=== PATIENT | female | born 1990 | race Caucasian/White ===

== ENCOUNTER 2017-10-02 14:26 | Emergency (ER) | payer OTHER ==
[~2017-10-02] VITALS: Ht 165.1 cm; Wt 60.0 kg
[~2017-10-02 14:26] MED LIST: TESSALON PER100 MG PO
[2017-10-02 16:40] VITALS: BP 129/74
== END 2017-10-02 16:40 | disposition home or self-care (01) | DRG 605 ==
LOC: ED 14:26
DX: S00.93XA Contusion of unspecified part of head, initial encounter (principal); I50.9 Heart failure, unspecified; M32.9 Systemic lupus erythematosus, unspecified; W22.03XA Walked into furniture, initial encounter; Y92.009 Unspecified place in unspecified non-institutional (private) residence as the place of occurrence of the external cause

== ENCOUNTER 2017-11-26 13:08 | Emergency (ER) | payer OTHER ==
[~2017-11-26] VITALS: Ht 165.1 cm; Wt 44.0 kg
[2017-11-26 15:08] LABS: URINE BLOOD DIPSTICK LARGE (NEGATIVE); URINE GLUCOSE - DIPSTICK NEGATIVE (NEGATIVE); URINE KETONE NEGATIVE (NEGATIVE); URINE NITRITE - DIPSTICK NEGATIVE (Negative); URINE PROTEIN - DIPSTICK 100 mg/dL (NEG-TRACE); URINE SPECIFIC GRAVITY >=1.030; URINE UROBILINOGEN - DIPSTICK 0.2 E.U./dL (0.2)
[2017-11-26 15:13] LABS: URINE BILIRUBIN - DIPSTICK NEGATIVE (NEGATIVE); URINE CLARITY CLOUDY; URINE COLOR YELLOW; URINE LEUK ESTERASE SMALL (NEGATIVE)
[2017-11-26 15:15] VITALS: BP 112/74
[2017-11-26] MEDS ORDERED: CIPROFLOXACN500 MG PO (15:18)
[2017-11-26] MEDS ORDERED: PYRIDIUM200 MG PO (15:18)
[2017-11-26 15:22] LABS: URINE RBC 50-100 RBC/hpf (0-5); URINE SQUAMOUS EPITHELIAL CELL FEW EPI/hpf (0-FEW); URINE WBC 20-50 WBC/hpf (0-5)
== END 2017-11-26 15:15 | disposition home or self-care (01) | DRG 690 ==
LOC: ED 13:08
PROVIDERS: Emergency Medicine
DX: N39.0 Urinary tract infection, site not specified (principal); R10.2 Pelvic and perineal pain; R30.0 Dysuria; R35.0 Frequency of micturition; Z95.0 Presence of cardiac pacemaker; R50.9 Fever, unspecified

== ENCOUNTER 2018-06-06 15:16 | Emergency (ER) | payer MEDICARE, OTHER ==
[~2018-06-06] VITALS: Ht 165.1 cm; Wt 45.0 kg
[~2018-06-06 15:16] MED LIST changes: +CIPROFLOXACN500 MG PO; +PYRIDIUM200 MG PO
[2018-06-06 16:50] LABS: HEMATOCRIT 44.4 % (37.0-47.0); IMMATURE GRANULOCYTES 0.3 % (0.0-5.0); MEAN CELL VOLUME 82.4 fL CALC (80.0-100.0); MEAN CORPUSCULAR HGB CONC 31.5 g/L CALC (32.0-36.0); NEUT# 6.92 thou/uL (2.00-7.15); RED BLOOD COUNT 5.39 mill/uL (4.20-5.60); RED CELL DISTRI WIDTH 14.4 % (11.5-15.5)
[2018-06-06 17:13] LABS: ALBUMIN 4.7 g/dL (3.2-5.0); ALKALINE PHOSPHATASE 106 u/l (38-126); ANION GAP 17 (6-22 (CALC)); BILIRUBIN, TOTAL 0.4 mg/dL (0.0-1.4); BUN 17 mg/dL (7-17); BUN/CREATININE RATIO 23 (12-20 (CALC)); CARBON DIOXIDE 21 mmol/l (22-30); CHLORIDE 108 mmol/l (95-108); CREATININE 0.7 mg/dL (0.5-1.0); GFR > 60 ML/MIN (>=60 (CALC)); GFR FOR AFR.AMER. > 60 ML/MIN (>=60 (CALC)); LIPASE 213 u/l (23-300); POTASSIUM 4.3 mmol/l (3.5-5.1); SGOT/AST 26 u/l (14-36); SGPT/ALT 29 u/l (9-52); SODIUM 141 mmol/l (137-146); TOTAL PROTEIN 7.9 g/dL (6.3-8.2)
[2018-06-06 17:28] LABS: BETA-HCG, QUANT(RESULT NUMBER) <2 mIU/mL
[2018-06-06 17:50] LABS: URINE BILIRUBIN - DIPSTICK NEGATIVE (NEGATIVE); URINE BLOOD DIPSTICK SMALL (NEGATIVE); URINE COLOR YELLOW; URINE GLUCOSE - DIPSTICK NEGATIVE (NEGATIVE); URINE KETONE NEGATIVE (NEGATIVE); URINE NITRITE - DIPSTICK NEGATIVE (Negative); URINE PROTEIN - DIPSTICK NEGATIVE (NEG-TRACE); URINE SPECIFIC GRAVITY 1.025; URINE UROBILINOGEN - DIPSTICK 0.2 E.U./dL (0.2)
[2018-06-06 17:51] LABS: URINE LEUK ESTERASE MODERATE (NEGATIVE)
[2018-06-06 17:52] LABS: URINE CLARITY CLOUDY
[2018-06-06 17:53] LABS: URINE BACTERIA FEW hpf; URINE EPITHELIAL CELLS FEW EPI/hpf (0-FEW)
[2018-06-06] MEDS ORDERED: CEPHALEXIN500 M1 PO (19:20)
[2018-06-06 20:03] VITALS: BP 129/76
== END 2018-06-06 20:03 | disposition home or self-care (01) ==
LOC: ED 15:16
PROVIDERS: Family Medicine
DX: R10.32 Left lower quadrant pain (principal); R10.31 Right lower quadrant pain; N39.0 Urinary tract infection, site not specified; M32.9 Systemic lupus erythematosus, unspecified; Z95.0 Presence of cardiac pacemaker
CPT/HCPCS: Q9967

== ENCOUNTER 2018-09-17 07:29 | Emergency (ER) | payer MEDICARE, MEDICAID ==
[~2018-09-17] VITALS: Ht 165.1 cm; Wt 61.0 kg
[~2018-09-17 07:29] MED LIST changes: +CEPHALEXIN500 M1 PO
[2018-09-17] MEDS ORDERED: BUSPIRONE5 MG PO (07:56)
[2018-09-17 08:11] LABS: URINE BLOOD DIPSTICK TRACE-INTACT (NEGATIVE); URINE COLOR YELLOW; URINE GLUCOSE - DIPSTICK NEGATIVE (NEGATIVE); URINE KETONE 15 mg/dL (NEGATIVE); URINE NITRITE - DIPSTICK NEGATIVE (Negative); URINE PH 5.5 (4.5-8.0); URINE PROTEIN - DIPSTICK NEGATIVE (NEG-TRACE); URINE SPECIFIC GRAVITY >=1.030; URINE UROBILINOGEN - DIPSTICK 0.2 E.U./dL (0.2)
[2018-09-17 08:25] LABS: URINE CLARITY SL CLOUDY; URINE LEUK ESTERASE MODERATE (NEGATIVE)
[2018-09-17 08:26] LABS: URINE BILIRUBIN - DIPSTICK NEGATIVE (NEGATIVE)
[2018-09-17 08:36] LABS: URINE SQUAMOUS EPITHELIAL CELL MANY EPI/hpf (0-FEW)
[2018-09-17] MEDS ORDERED: CIPROFLOXACN500 MG PO (08:44)
[2018-09-17 08:49] VITALS: BP 110/71
== END 2018-09-17 08:50 | disposition home or self-care (01) ==
LOC: ED 07:29
PROVIDERS: Emergency Medicine
DX: N39.0 Urinary tract infection, site not specified (principal); R10.31 Right lower quadrant pain; R30.0 Dysuria

== ENCOUNTER 2020-03-09 | Emergency (ER) | payer MEDICARE, MEDICAID ==
[~2020-03-09] MED LIST changes: +BUSPIRONE5 MG PO
[2020-03-09 23:52] LABS: HEMATOCRIT 31.6 % (37.0-47.0); IMMATURE GRANULOCYTES 0.4 % (0.0-5.0); MEAN CELL VOLUME 72.1 fL CALC (80.0-100.0); MEAN CORPUSCULAR HGB 20.5 pG CALC (26.0-32.0); MEAN CORPUSCULAR HGB CONC 28.5 g/dL CAL (32.0-36.0); NEUT# 13.03 thou/uL (2.00-7.15); RED BLOOD COUNT 4.38 mill/uL (4.20-5.60); RED CELL DISTRI WIDTH 15.8 % (11.5-15.5)
[2020-03-09] MEDS ORDERED: LEXAPRO5 MG PO (23:59)
[2020-03-10 00:04] LABS: ALBUMIN 4.3 g/dL (3.2-5.0); ALKALINE PHOSPHATASE 90 u/l (38-126); AMYLASE 96 u/l (30-110); ANION GAP 16 (6-22 (CALC)); BUN 22 mg/dL (7-17); BUN/CREATININE RATIO 37 (12-20 (CALC)); CARBON DIOXIDE 17 mmol/l (22-30); CHLORIDE 107 mmol/l (95-108); CREATININE 0.6 mg/dL (0.5-1.0); GFR > 60 ML/MIN (>=60 (CALC)); GFR FOR AFR.AMER. > 60 ML/MIN (>=60 (CALC)); LIPASE 145 u/l (23-300); POTASSIUM 3.8 mmol/l (3.5-5.1); SGOT/AST 33 u/l (14-36); SODIUM 136 mmol/l (137-146); TOTAL PROTEIN 7.2 g/dL (6.3-8.2)
[2020-03-10 00:11] LABS: BILIRUBIN, TOTAL 0.7 mg/dL (0.0-1.4)
[2020-03-10 00:15] LABS: MYOGLOBIN 16 ng/mL (0 - 62)
[2020-03-10 00:22] LABS: URINE BILIRUBIN - DIPSTICK NEGATIVE (NEGATIVE); URINE BLOOD DIPSTICK NEGATIVE (NEGATIVE); URINE COLOR YELLOW; URINE GLUCOSE - DIPSTICK NEGATIVE (NEGATIVE); URINE KETONE 40 mg/dL (NEGATIVE); URINE LEUK ESTERASE TRACE (NEGATIVE); URINE NITRITE - DIPSTICK NEGATIVE (Negative); URINE PROTEIN - DIPSTICK 30 mg/dL (NEG-TRACE); URINE SPECIFIC GRAVITY >=1.030; URINE UROBILINOGEN - DIPSTICK 0.2 E.U./dL (0.2)
[2020-03-10 00:24] LABS: URINE BACTERIA MODERATE hpf; URINE EPITHELIAL CELLS MODERATE EPI/hpf (0-FEW)
[2020-03-10] MEDS ORDERED: CEPHALEXIN500 M1 PO (02:18)
[2020-03-10] MEDS ORDERED: ONDANSETRON4 MG PO (02:18)
[2020-03-16] MEDS ORDERED: ELIQUIS STARTER5 MG PO (09:36)
== END 2020-03-10 02:25 | disposition home or self-care (01) ==
PROVIDERS: Emergency Medicine
DX: N39.0 Urinary tract infection, site not specified (principal); R16.1 Splenomegaly, not elsewhere classified; N83.202 Unspecified ovarian cyst, left side; N83.201 Unspecified ovarian cyst, right side; Z87.440 Personal history of urinary (tract) infections

== ENCOUNTER 2020-03-11 | Inpatient (IN) | payer MEDICARE, MEDICAID ==
--- NOTE | 2020-03-10 23:47 | NUR ---
PATIENT PLACED IN TREATMENT ROOM BY EMS
[2020-03-11] VITALS (18 sets, daily range): BP systolic 90–118; BP diastolic 52–71
[~2020-03-11] MED LIST changes: +LEXAPRO5 MG PO; +ONDANSETRON4 MG PO
[2020-03-11 00:30] LABS: HEMATOCRIT 30.5 % (37.0-47.0); HEMOGLOBIN 8.7 g/dl (12.0-16.0); IMMATURE GRANULOCYTES 0.5 % (0.0-5.0); MEAN CELL VOLUME 71.9 fL CALC (80.0-100.0); MEAN CORPUSCULAR HGB 20.5 pG CALC (26.0-32.0); MEAN CORPUSCULAR HGB CONC 28.5 g/dL CAL (32.0-36.0); NEUT# 8.23 thou/uL (2.00-7.15); RED BLOOD COUNT 4.24 mill/uL (4.20-5.60); RED CELL DISTRI WIDTH 16.1 % (11.5-15.5)
[2020-03-11 00:36] LABS: URINE BILIRUBIN - DIPSTICK NEGATIVE (NEGATIVE); URINE BLOOD DIPSTICK NEGATIVE (NEGATIVE); URINE CLARITY CLEAR; URINE COLOR YELLOW; URINE GLUCOSE - DIPSTICK NEGATIVE (NEGATIVE); URINE KETONE 40 mg/dL (NEGATIVE); URINE LEUK ESTERASE NEGATIVE (Negative); URINE NITRITE - DIPSTICK NEGATIVE (Negative); URINE PROTEIN - DIPSTICK NEGATIVE (NEG-TRACE); URINE SPECIFIC GRAVITY >=1.030; URINE UROBILINOGEN - DIPSTICK 0.2 E.U./dL (0.2)
[2020-03-11 00:50] LABS: ALBUMIN 4.6 g/dL (3.2-5.0); ALKALINE PHOSPHATASE 98 u/l (38-126); BILIRUBIN, TOTAL 0.6 mg/dL (0.0-1.4); BUN 14 mg/dL (7-17); BUN/CREATININE RATIO 25 (12-20 (CALC)); CHLORIDE 103 mmol/l (95-108); CREATININE 0.6 mg/dL (0.5-1.0); GFR > 60 ML/MIN (>=60 (CALC)); GFR FOR AFR.AMER. > 60 ML/MIN (>=60 (CALC)); POTASSIUM 3.2 mmol/l (3.5-5.1); SGOT/AST 35 u/l (14-36); SODIUM 136 mmol/l (137-146); TOTAL PROTEIN 7.9 g/dL (6.3-8.2)
[2020-03-11 00:51] LABS: ANION GAP 12 (6-22 (CALC)); CARBON DIOXIDE 24 mmol/l (22-30)
--- NOTE | 2020-03-11 01:18 | NUR ---
PATIENT RESTING QUIETLY PLAYING ON PHONE. AWAITING CT SCAN.
--- NOTE | 2020-03-11 01:36 | NUR ---
PATIENT IN RADIOLOGY, RECEIVED CALL FROM RADIOLOGY DEPARTMENT. PATIENT IV INFILTRATE DURING CTA SCAN.
--- NOTE | 2020-03-11 01:49 | NUR ---
sALINE ONLY INJECTED INTO IV SITE. IV PATENT AND FLUSHES WELL UNABLE TO USE FOR CT SCAN.
--- NOTE | 2020-03-11 02:38 | NUR ---
NEW IV PLACED, PATIENT TO RADIOLOGY FOR CTA.
--- NOTE | 2020-03-11 03:06 | NUR ---
PATIENT RETURNED FROM RADIOLOGY. RESTING QUIETLY. NO C/O PAIN OR DISCOMFORT, NO S/S OF DISTRESS NOTED. RESPIRATIONS EVEN AND UNLABORED.
[2020-03-11 03:52] LABS: ACT PARTIAL THROMBO TIME 28.2 SECONDS (20.0-32.5); INTERNATIONAL NORMALIZED RATIO 1.1 RATIO (0.7-1.3); PROTHROMBIN TIME 11.1 SECONDS (9.0-12.5)
--- NOTE | 2020-03-11 04:16 | NUR ---
PATIENT MOVED TO ROOM 6 FOR MONITORING WHILE WAITING FOR INPATIENT BED.
--- NOTE | 2020-03-11 04:33 | NUR ---
HAND OFF REPORT GIVEN TO PULP GRINDER.
--- NOTE | 2020-03-11 04:45 | NUR ---
RECEIVED FROM ER VIA STRETCHER. AMBULATES FROM STRETCHER TO BED, STANCE AND GAIT STABLE. PLACED ON SUPERVISOR PHOTOSTAT SHOWING PACED RHYTHM. RESP EVEN AND UNLABORED. RA O2 SAT 97% ADMISSION ASSESSMENT COMPLETED. ORIENTED TO SURROUNDINGS. EXPLAINED USE OF CALL BUTLER AND BED CONTROLS. DISCUSSED PLAN OF CARE. DENIES NEEDS AT THIS TIME.
--- NOTE | 2020-03-11 07:00 | NUR ---
REPORT RECEIEVD FROM NIGHT RN. PT RESTING IN BED. PT ALERT AND ORIENTED X4. PT COMPLAINING OF RIGHT FLANK PAIN. DR. ANDRADE NOTIFIED. PAIN MEDICATIONS TO BE ORDERED. WILL CONTINUE TO MONITOR.
--- NOTE | 2020-03-11 07:58 | NUR ---
COVID SWAB COMPLETED AND SENT TO LAB
--- NOTE | 2020-03-11 08:20 | NUR ---
PT HAS PACEMAKER. AT TIMES PT HR BELOW 50'S. PT DOES NOT KNOW WHAT HER PACEMAKER IS SET AT AND WHAT TYPE OF PACEMAKER SHE HAS. DR. ANDRADE NOTIFIED. PER DR. ANDRADE OBTAIN PATIENT MEDICAL RECORDS FROM PCP AND IF POSSIBLE INTERROGATE PACEMAKER.
[2020-03-11 08:26] LABS: C-REACTIVE PROTEIN 5.5 mg/dL (0-0.9)
--- NOTE | 2020-03-11 09:00 | NUR ---
DR. ANDRADE AT BEDSIDE TO ASSESS PT
--- NOTE | 2020-03-11 09:50 | NUR ---
CONSENT FOR GERMLINE GENETIC TESTING PRINTED OUT FOR PATIENT. PER LAB [facility], SINCE PATIENT IS INPATIENT, NO SIGNATURE REQUIRED TO RUN LAB. DR. ANDRADE NOTIFIED. NO NEW ORDERS.
--- NOTE | 2020-03-11 10:00 | NUR ---
PT RESTING IN BED. NO DISTRESS NOTED. DENIES PAIN AT THIS TIME. WILL CONTINUE TO MONITOR.
--- NOTE | 2020-03-11 11:25 | NUR ---
PAIN MEDICATION GIVEN ORDERED, C/O R FLANK PAIN
--- NOTE | 2020-03-11 12:00 | NUR ---
PT AMBULATED TO BEDSIDE COMMODE TO VOID. PT STEADY. STAND BY ASSIST. NO DISTRESS NOTED. WILL CONTINUE TO MONITOR.
--- NOTE | 2020-03-11 12:21 | NUR ---
PT BELIEVES SHE HAS A [employer] PACEMAKER. PT STATES SHE DOES NOT HAVE A PCP. SHE GOES TO [facility] FOR MEDICAL TREATMENT. CONSENT FOT RELEASE OF INFORMATION OBTAINED. CALLED [facility]. THEY ARE CLOSED TODAY. WILL PASS ON IN REPORT TO CALL SATURDAY. DR. ANDRADE NOTIFIED. NO NEW ORDERS.
--- NOTE | 2020-03-11 13:13 | NUR ---
DR. ANDRADE NOTIFIED OF PATIENT D-DIMER 2.48. NO NEW ORDERS AT THIS TIME
--- NOTE | 2020-03-11 14:00 | NUR ---
PACEMAKER IRRIGATED BY MUNDO HENRIQUEZ WITH [employer]
--- NOTE | 2020-03-11 14:05 | NUR ---
PT RESTING IN BED. NO DISTRESS NOTED. NO SOB NOTED. WILL CONTINUE TO MONITOR.
--- NOTE | 2020-03-11 16:27 | NUR ---
PT RESTING IN BED, PT VOIDING VIA BEDSIDE COMMODE. NO DISTRESS NOTED. DENIES PAIN AT THIS TIME. WILL CONTINUE TO MONITOR.
--- NOTE | 2020-03-11 18:05 | NUR ---
PT UP IN BED FOR DINNER. NO DISTRESS NOTED. AFEBRILE ALL SHIFT. PT VOIDING VIA BEDSIDE COMMODE. PAIN MEDICATIONS GIVEN. PT ON RA. NO SOB NOTED. REPORT TO BE GIVEN TO NIGHT NURSE
--- NOTE | 2020-03-11 19:23 | NUR ---
REPORT GIVEN BY DIEGO FLOWER. PATIENT IN BED WATCHING TV. RESP EVEN AND UNLABORED.PACED ON TELE. FLUIDS INFUSING. NO S/S OF DISTRESS NOTED. PLAN OF CARE DISCUSSED. PATIENT INFORMED TO CALL WITH ANY QUESTIONS OR CONCERNS. FALL PRECATUIONS IN PLACE.
--- NOTE | 2020-03-11 21:30 | NUR ---
ASSISTED PATIENT TO BSC.
--- NOTE | 2020-03-11 22:34 | NUR ---
PATIENT AWAKE WATCHING TV. IV FLUIDS CHANGED.NO S/S OF DISTRESS NOTED.
--- NOTE | 2020-03-11 23:25 | NUR ---
PAIN MEDICATIONS GIVEN PER ORDERED, C/O R FLANK PAIN
[2020-03-12] VITALS (14 sets, daily range): BP systolic 82–147; BP diastolic 52–78
--- NOTE | 2020-03-12 00:34 | NUR ---
PATIENT RESTING WITH EYES CLOSED. RESP EVEN AND UNLABORED. NO S/S OF DISTRESS NOTED.
--- NOTE | 2020-03-12 02:12 | NUR ---
patient resting with eyes closed. resp even and unlabored. no s/s of distress noted.
--- NOTE | 2020-03-12 04:21 | NUR ---
AM BLOODWORK DRAWN, AM MEDICATION GIVEN AND PAIN MEDICATION GIVEN PER MD ORDERS,
[2020-03-12 05:01] LABS: HEMATOCRIT 26.7 % (37.0-47.0); HEMOGLOBIN 7.4 g/dl (12.0-16.0); MEAN CELL VOLUME 73.4 fL CALC (80.0-100.0); MEAN CORPUSCULAR HGB 20.3 pG CALC (26.0-32.0); MEAN CORPUSCULAR HGB CONC 27.7 g/dL CAL (32.0-36.0); RED BLOOD COUNT 3.64 mill/uL (4.20-5.60); RED CELL DISTRI WIDTH 16.1 % (11.5-15.5)
[2020-03-12 05:09] LABS: ANION GAP 8 (6-22 (CALC)); BUN 9 mg/dL (7-17); BUN/CREATININE RATIO 17 (12-20 (CALC)); CARBON DIOXIDE 24 mmol/l (22-30); CHLORIDE 109 mmol/l (95-108); CREATININE 0.5 mg/dL (0.5-1.0); GFR > 60 ML/MIN (>=60 (CALC)); GFR FOR AFR.AMER. > 60 ML/MIN (>=60 (CALC)); POTASSIUM 3.6 mmol/l (3.5-5.1); SODIUM 137 mmol/l (137-146)
--- NOTE | 2020-03-12 06:39 | NUR ---
NEW BAG OF IV FLUIDS STARTED
--- NOTE | 2020-03-12 06:45 | NUR ---
RECIEVED REPORT FROM MUNDO COMER. ASSUMED PT CARE.
--- NOTE | 2020-03-12 07:30 | NUR ---
PT RESTING IN BED, RESPIRATIONS EVEN, UNLABORED, SA02@97% ON 1LPM VIA NC. PT DENIES SOB, SOME TENDERNESS WITH DEEPER BREATHING AT DIAPHARGM. ASSESSMENT COMPLETE, CALL LIGHT IN REACH, WILL MONITOR.
--- NOTE | 2020-03-12 08:15 | NUR ---
PT ASSISTED TO BSC, VOIDED. THEN ASSISTED BACK TO BED. CALL LIGHT IN REACH. WILL MONITOR.
--- NOTE | 2020-03-12 09:30 | NUR ---
DR. CARVAJAL AT BEDSIDE FOR ASSESSMENT AND TO DISCUSS PLAN OF CARE. NEW ORDERS RECIEVED.
--- NOTE | 2020-03-12 10:45 | NUR ---
PT ASSISTED TO BSC, VOIDED 300ML URINE. BACK TO BED, CALL LIGHT IN REACH. WILL MONITOR.
--- NOTE | 2020-03-12 12:00 | NUR ---
DIETARY ON UNIT, LUNCH TRAY SET UP.
--- NOTE | 2020-03-12 13:15 | NUR ---
assisted pt to bsc, voided, 350ml urine. call light in reach.
--- NOTE | 2020-03-12 13:28 | NUR ---
pt medicated for pain to r flank as ordered per pt request.
--- NOTE | 2020-03-12 15:45 | NUR ---
CALLED TO PT ROOM, PT SET UP FOR BATH, GIVEN DEODERANT PER PT REQUEST. PT THEN STATED SHE HEARD LOUD YELLING AND CUSSING. PT THEN STATED IT SOUNDED LIKE HER FIANCE "HENRIQUE GRACE". APOLOGY MADE FOR DISRUPTIONS. PT RESTING BACK IN BED, CALL IN REACH. WILL MONITOR.
--- NOTE | 2020-03-12 17:39 | NUR ---
DIETARY ON UNIT, DINNER TRAY SET UP.
--- NOTE | 2020-03-12 18:14 | NUR ---
PT REMAINS SITTING IN LANGUAGE PATHOLOGIST, EATING DINNER. NO DISTRESS NOTED. CALL LIGHT IN REACH. WILL MONITOR.
--- NOTE | 2020-03-12 18:16 | NUR ---
PT RESTING IN BED, WITH EYES CLOSED.RESPIRATIONS EVEN/UNLABORED. CALL LIGHT IN REACH. WILL MONITOR.
--- NOTE | 2020-03-12 19:20 | NUR ---
PATIENT AWAKENS EASILY WHEN SPOKEN TO. ORIENTED X4. ON 1 L/MIN NC, NO SOB NOTED OR NO COMPLAINTS OF SOB, SATS GREATER THAN 95%. TEMP 99.9. PACED ON TELE WITH OCC PVC'S. RAC AND LAC IV'S INTACT AND FLSUH PROPERLY, NS INFSUING AT 125 ML/HR. C/O OF PAIN RATE OF 2/10 O RIGHT RIB SIDE AND LEFT SHOULDER. USES BSC. POC FOR TONIGHT DISCUSSED. NURSING ASSESSMENT PERFORMED. CALL LIGHT WITHIN REACH.
--- NOTE | 2020-03-12 20:07 | NUR ---
PATIENT UP TO BSC WITHOUT DIFFICULTY. C/O PAIN ON RIGHT RIB SIDE AND LEFT SHOULDER, REQUESTS PAIN MEDICATION AND ICED WATER. SAFELY SITS UP BACK IN BED. 700 ML URINE OUT.
--- NOTE | 2020-03-12 20:17 | NUR ---
PAIN MED PROVIDED PER REQUEST, ICED WATER PROVIDED. PT SITS UP IN BED. NO OTHER NEEDS. CALL LIGHT WITHIN REACH.
--- NOTE | 2020-03-12 22:45 | NUR ---
PATIENT SITS ON SIDE OF BED AFTER USING BSC. WATCHES TV AND IS ON HER PHONE. NO COMPLAINTS. NEW IV BAG OF FLUIDS INFUSING. CALL LIGHT WITHIN REACH.
[2020-03-13] VITALS: BP 116/79
--- NOTE | 2020-03-13 01:00 | NUR ---
PATIET LAYS WITH HOB 30 DEGREES. RESTS WTH EYES CLOSED. CALL LIGHT WITHIN REACH.
[2020-03-13 02:00] VITALS: BP 113/76
--- NOTE | 2020-03-13 03:47 | NUR ---
PATIENT AWAKENS EASILY WHEN SPOKEN TO, LOVENOX INJECTION GIVEN ON LEFT SIDE ABDOMEN. NO ACUTE DISTRESS SHOWN, PAIN MEDICATION PROVIDED PER REQUEST. CALL LIGHT WITHIN REACH.
[2020-03-13 05:10] LABS: HEMATOCRIT 29.4 % (37.0-47.0); HEMOGLOBIN 8.1 g/dl (12.0-16.0); IMMATURE GRANULOCYTES 0.5 % (0.0-5.0); MEAN CELL VOLUME 73.9 fL CALC (80.0-100.0); MEAN CORPUSCULAR HGB 20.4 pG CALC (26.0-32.0); MEAN CORPUSCULAR HGB CONC 27.6 g/dL CAL (32.0-36.0); NEUT# 2.91 thou/uL (2.00-7.15); RED BLOOD COUNT 3.98 mill/uL (4.20-5.60); RED CELL DISTRI WIDTH 16.3 % (11.5-15.5)
[2020-03-13 05:35] LABS: ANION GAP 10 (6-22 (CALC)); BUN 7 mg/dL (7-17); BUN/CREATININE RATIO 17 (12-20 (CALC)); CARBON DIOXIDE 23 mmol/l (22-30); CHLORIDE 108 mmol/l (95-108); CREATININE 0.4 mg/dL (0.5-1.0); GFR > 60 ML/MIN (>=60 (CALC)); GFR FOR AFR.AMER. > 60 ML/MIN (>=60 (CALC)); POTASSIUM 3.4 mmol/l (3.5-5.1); SODIUM 137 mmol/l (137-146)
[2020-03-13 06:06] VITALS: BP 102/67
--- NOTE | 2020-03-13 06:45 | NUR ---
RECIEVED REPORT FROM MUNDO DOMINGUEZ. ASSUMED PT CARE.
--- NOTE | 2020-03-13 07:30 | NUR ---
PT ASSISTED TO BSC, THEN BACK TO BED.
[2020-03-13 08:00] VITALS: BP 107/70
--- NOTE | 2020-03-13 08:00 | NUR ---
PT RESTING IN BED, A&OX4, ABLE TO MAKE NEEDS KNOWN. RESPIRATIONS EVEN/UNLABORED, SAO2@96%RA, REMAINS PACED ON TELEMETRY, HR 56. CALL LIGHT IN REACH. WILL MONITOR.
--- NOTE | 2020-03-13 08:58 | NUR ---
DR. CARVAJAL AT BEDSIDE FOR ASSESSMENT AND TO DISCUSS PLAN OF CARE, NEW ORDERS RECIEVED.
--- NOTE | 2020-03-13 09:40 | NUR ---
PT MEDICATED FOR PAIN ORDERED, PER PT REQUEST.
[2020-03-13 10:00] VITALS: BP 81/50
--- NOTE | 2020-03-13 11:30 | NUR ---
DIETARY ON UNIT, LUNCH TRAY SET UP. PT DENIES DISTRESS AT THIS TIME.
[2020-03-13] MEDS ORDERED: ELIQUIS STARTER5 MG PO (11:45)
--- NOTE | 2020-03-13 12:20 | NUR ---
IV site discontinued, cath intact. No edema , no redness, voices no discomfort.
--- NOTE | 2020-03-13 13:00 | NUR ---
PT MEDICATIONS RETURNED TO PT FROM PHARMACY.
--- NOTE | 2020-03-13 13:15 | NUR ---
Discharge instructions given. Patient verbalizes understanding of same. Discharged in stable condition via Wheelchair to Home with family. All belongings sent with pt.
[2020-03-16] MEDS ORDERED: ELIQUIS STARTER5 MG PO (09:36)
== END 2020-03-13 13:15 | disposition home or self-care (01) | DRG 176 ==
PROVIDERS: Emergency Medicine; Internal Medicine; ADMIT Internal Medicine
DX: I26.99 Other pulmonary embolism without acute cor pulmonale (principal); N39.0 Urinary tract infection, site not specified; M32.13 Lung involvement in systemic lupus erythematosus; D50.9 Iron deficiency anemia, unspecified; I50.9 Heart failure, unspecified; R16.1 Splenomegaly, not elsewhere classified; R09.02 Hypoxemia; Z95.0 Presence of cardiac pacemaker; Z20.828 Contact with and (suspected) exposure to other viral communicable diseases; R10.11 Right upper quadrant pain; R11.2 Nausea with vomiting, unspecified; N83.202 Unspecified ovarian cyst, left side; N83.201 Unspecified ovarian cyst, right side; Z87.440 Personal history of urinary (tract) infections
CPT/HCPCS: J1650; J1756; Q9967

== ENCOUNTER 2020-10-09 16:35 | Emergency (ER) | payer MEDICARE, MEDICAID ==
[~2020-10-09] VITALS: Ht 165.1 cm; Wt 44.5 kg
[~2020-10-09 16:35] MED LIST changes: +ELIQUIS STARTER5 MG PO
[2020-10-09] MEDS ORDERED: GENTAK0.32 OD (18:03)
[2020-10-09 18:12] VITALS: BP 118/74
== END 2020-10-09 18:13 | disposition home or self-care (01) ==
LOC: ED 16:35
DX: H10.11 Acute atopic conjunctivitis, right eye (principal); Z95.0 Presence of cardiac pacemaker

== ENCOUNTER 2021-02-02 07:53 | Observation (INO) | payer MEDICARE, OTHER ==
[2021-02-02] VITALS (7 sets, daily range): BP systolic 92–112; BP diastolic 61–67
[~2021-02-02] VITALS: Ht 165.1 cm; Wt 44.5 kg
[~2021-02-02 07:53] MED LIST changes: +GENTAK0.32 OD
--- NOTE | 2021-02-02 07:53 | NUR ---
PT TO ROOM 13 VIA EMS. BED SIDE TRAIGE COMPLETED
--- NOTE | 2021-02-02 08:15 | NUR ---
POC REVIEWED. CALL BUTLER IN REACH.
[2021-02-02 08:55] LABS: HEMATOCRIT 25.7 % (37.0-47.0); IMMATURE GRANULOCYTES 0.5 % (0.0-5.0); MEAN CORPUSCULAR HGB 18.7 pG CALC (26.0-32.0); MEAN CORPUSCULAR HGB CONC 27.2 g/dL CAL (32.0-36.0); NEUT# 10.58 thou/uL (2.00-7.15); RED BLOOD COUNT 3.74 mill/uL (4.20-5.60); RED CELL DISTRI WIDTH 17.2 % (11.5-15.5)
[2021-02-02 08:56] LABS: HEMOGLOBIN 7.1 g/dl (12.0-16.0); MEAN CELL VOLUME 68.7 fL CALC (80.0-100.0)
[2021-02-02 09:04] LABS: ALBUMIN 4.1 g/dL (3.2-5.0); ALKALINE PHOSPHATASE 80 u/l (38-126); ANION GAP 12 (6-22 (CALC)); BILIRUBIN, TOTAL 0.8 mg/dL (0.0-1.4); BUN 16 mg/dL (7-17); BUN/CREATININE RATIO 31 (12-20 (CALC)); CARBON DIOXIDE 21 mmol/l (22-30); CHLORIDE 106 mmol/l (95-108); CREATININE 0.5 mg/dL (0.5-1.0); GFR > 60 ML/MIN (>=60 (CALC)); GFR FOR AFR.AMER. > 60 ML/MIN (>=60 (CALC)); LIPASE 58 u/l (23-300); POTASSIUM 3.7 mmol/l (3.5-5.1); SGOT/AST 26 u/l (14-36); SODIUM 135 mmol/l (137-146); TOTAL PROTEIN 6.9 g/dL (6.3-8.2)
[2021-02-02 09:13] LABS: ACT PARTIAL THROMBO TIME 23.9 SECONDS (20.0-32.5); INTERNATIONAL NORMALIZED RATIO 1.1 RATIO (0.7-1.3); PROTHROMBIN TIME 11.5 SECONDS (9.0-12.5)
--- NOTE | 2021-02-02 09:17 | NUR ---
PATIENT RESTING QUIETLY. CALL BUTLER IN REACH
--- NOTE | 2021-02-02 10:15 | NUR ---
PT TO CT VIA STRETCHER AAOX4 WITH CT [employer] X2
--- NOTE | 2021-02-02 10:27 | NUR ---
PT TO CT, AAOX4 VIA STRETCHER WITH CT [employer]
[2021-02-02 10:34] LABS: URINE BLOOD DIPSTICK LARGE (NEGATIVE); URINE GLUCOSE - DIPSTICK NEGATIVE (NEGATIVE); URINE KETONE TRACE mg/dL (NEGATIVE); URINE LEUK ESTERASE NEGATIVE (NEGATIVE); URINE PH 5.5 (4.5-8.0); URINE PROTEIN - DIPSTICK 30 mg/dL (NEG-TRACE); URINE SPECIFIC GRAVITY >=1.030
[2021-02-02 10:48] LABS: URINE BILIRUBIN - DIPSTICK SMALL (NEGATIVE); URINE NITRITE - DIPSTICK NEGATIVE (Negative)
[2021-02-02 10:49] LABS: URINE COLOR BROWN
[2021-02-02 10:50] LABS: URINE RBC 25-50 RBC/hpf (0-5)
--- NOTE | 2021-02-02 11:25 | NUR ---
patient to bedside to discuss findings and possible plan of care.
--- NOTE | 2021-02-02 11:59 | NUR ---
PATIENT RESTING QUIETLY. CALL BUTLER IN REACH.
--- NOTE | 2021-02-02 12:26 | NUR ---
REPORT CALLED TO JULIO.
--- NOTE | 2021-02-02 12:30 | NUR ---
PT ARRIVED FROM THE ED VIA STREACHER. INTO THE BED WITH ASST. ORIENTED TO THE ROOM THE CALL SYSTEM , THE BED THE TV AND THE TELEPHONE. INSTUCTED PT ON BLOOD INFUSION, AND POSS REACTION. AXOX3, TELE PLACED ON THE PT, NOTED PT HAS A PACEMAKER. #20 HL TO THE RIGHT AC PATENT. NO RESP DISTRESS NOTED AT THIS TIME. REPOSITIOEND FOR COMFORT, SIDE RAILS UP CALL LIGHT IN REACH BED LOCKED IN LOW POSITION, WILL CONTINUE TO MONIOTR THE PATIENT.
--- NOTE | 2021-02-02 14:00 | NUR ---
BLOOD TRANSFUSION COMMENCED AFTER VERIFIED BY 2 RNS. PATIENT INSTRUCTED ON VERBALISING ANY ADVERSE REACTIONS SUCH ITCHING, RASH, PAIN AT IV SITE, CHEST PAIN, DIFFICULTY BREATHING ETC. WILL OBSERVE PATIENT FOR SAME.
--- NOTE | 2021-02-02 14:12 | NUR ---
BLOOD TRANSFUSING WITHOUT ADVERSE REACTIONS. WILL CONTINUE WITH TRANSFUSION AND MONITORING OF PATIENT.
--- NOTE | 2021-02-02 14:13 | NUR ---
RATE OF BLOOD INCREASED TO 200ML/HR TO MAXIMIZE TRANSFUSION TIME.
--- NOTE | 2021-02-02 14:55 | NUR ---
NO ADVERSE REACTIONS NOTED OR REPORTED.
--- NOTE | 2021-02-02 15:44 | NUR ---
UNIT OF BLOOD TRANSFUSED WITHOUT ANY ADVERSE REACTIONS NOTED OR REPORTED. SEE VITAL SIGNS DOCUMENTED.
--- NOTE | 2021-02-02 16:00 | NUR ---
PT IS POST BLOOD TRANSFUSION. AXOX3, DENIES PAIN AT THIS TIME. 02 2L NC , PT STATS "IT HURTS TO TAKE A DEEP BREATH" . O2 SATS 93 %. INSTRUCTED ON ISSU. REPOSITIOEND FOR COMOFRT, CALL LIGHT IN REACH. WILL CONTINUE TO MONIOTR THE PATIENT.
--- NOTE | 2021-02-02 19:46 | NUR ---
RECEIVED REPORT FOR THIS PT AND IN BED WITH EYES OPEN AND ABLE TO MAKE NEEDS KNOWN. NO RESPIRATORY DISTRESS NOTED.
[2021-02-03] VITALS (9 sets, daily range): BP systolic 95–110; BP diastolic 55–74
--- NOTE | 2021-02-03 00:01 | NUR ---
PT IN BED WITH EYES CLOSED. NO S/S DISTRESS NOTED. IV FLUIDS RUNNING WITH NO COMPLICATIONS NOTED. CALL LIGHT WITHIN REACH. WILL CONTINUE TO OBSERVE
[2021-02-03 06:16] LABS: HEMATOCRIT 29.7 % (37.0-47.0); MEAN CORPUSCULAR HGB 19.8 pG CALC (26.0-32.0); MEAN CORPUSCULAR HGB CONC 26.9 g/dL CAL (32.0-36.0); RED BLOOD COUNT 4.05 mill/uL (4.20-5.60); RED CELL DISTRI WIDTH 20.8 % (11.5-15.5)
[2021-02-03 06:18] LABS: MEAN CELL VOLUME 73.3 fL CALC (80.0-100.0)
[2021-02-03 06:37] LABS: ANION GAP 10 (6-22 (CALC)); BUN 18 mg/dL (7-17); BUN/CREATININE RATIO 41 (12-20 (CALC)); CALCULATED LDLCHOLESTEROL 36 mg/dL (62-129 (CALC)); CARBON DIOXIDE 20 mmol/l (22-30); CHLORIDE 110 mmol/l (95-108); CHOLESTEROL HDL RATIO 1.8 (<4.4 (CALC)); CREATININE 0.4 mg/dL (0.5-1.0); GFR > 60 ML/MIN (>=60 (CALC)); GFR FOR AFR.AMER. > 60 ML/MIN (>=60 (CALC)); HDL CHOLESTEROL 56 mg/dL (>=40); MAGNESIUM 1.9 mg/dL (1.6-2.3); POTASSIUM 4.3 mmol/l (3.5-5.1); SODIUM 137 mmol/l (137-146); TOTAL CHOLESTEROL 99 mg/dl (0-199); TOTAL TRIGLYCERIDES 34 mg/dl (30-149); VLDL CHOLESTROL 7 mg/dl (1-41 (CALC))
--- NOTE | 2021-02-03 07:00 | NUR ---
SHIFT CHANGE REPORT, PT SLEEPING BUT AROUSES TO VERBAL STIMULI, NO C/O DISCOMFORT, TELE MONITOR IN PLACE, IVF INFUSING, CALL BUTLER IN REACH.
--- NOTE | 2021-02-03 08:11 | NUR ---
ROADWAY TECHNICIAN JUST REPORTED HR IN 30'S, ON ASSESSMENT PT SITTING UP IN BED EATING WITH NO C/O UNUSUAL SYMPTOMS, APICAL HR = 84, TELE REPORTED HR =76, WILL CONTINUE TO MONITOR.
--- NOTE | 2021-02-03 11:15 | NUR ---
UNIT OF RED BLOOD CELLS COMMENCED. PATIENT INSTRUCTED OF ADVERSE REACTIONS TO OBSERVE FOR AND REPORT INCLUDING ITCHING, RASH, DIFFICULTY BREATHING, CHILLS. PATIENT VERBALISE UNDERSTANDING.
[2021-02-03] MEDS ORDERED: MEDDOSEPAK PO (11:21)
[2021-02-03] MEDS ORDERED: CYCLOBENZAPR5 MG PO (11:21)
--- NOTE | 2021-02-03 11:33 | NUR ---
BLOOD TRANSFUSING WITHOUT ADVERSE REACTIONS OR CONCERNS. RATE INCREASE FROM 120ML/HR TO 200MLS/HR TO MAXIMIZE TRANSFUSION TIME. WILL CONTINUE TO MONITOR.
--- NOTE | 2021-02-03 12:20 | NUR ---
PRBC BEING INFUSED AT THIS TIME, PT TOLERATING WELL, ALL NEEDS ADDRESSED.
--- NOTE | 2021-02-03 12:25 | NUR ---
SITTING UP IN BED. NO ADVERSE REACTION NOTED OR REPORTED. WILL CONTINUE TRANSFUSION.
--- NOTE | 2021-02-03 15:36 | NUR ---
Discharge instructions given. Patient verbalizes understanding of same. Discharged in good condition via Wheelchair to Home with father. All belongings sent with pt. PT EXPRESSED APPRECIATION TO STAFF FOR GREAT CARE AND STATED SHE FEELS MUCH BETTER NOW.
== END 2021-02-03 15:30 | disposition home or self-care (01) ==
LOC: ED 07:53 → ED-I 11:28 → ED 11:38 → MS2 11:39
PROVIDERS: Nurse Practitioner; ADMIT Internal Medicine; ATTEND Internal Medicine
PROC: 30233N1 Transfusion of Nonautologous Red Blood Cells into Peripheral Vein, Percutaneous Approach (ICD-10-PCS; principal; 2021-02-02)
PROC: 30233N1 Transfusion of Nonautologous Red Blood Cells into Peripheral Vein, Percutaneous Approach (ICD-10-PCS; 2021-02-03)
DX: D62 Acute posthemorrhagic anemia (principal); N92.0 Excessive and frequent menstruation with regular cycle; I50.9 Heart failure, unspecified; I42.4 Endocardial fibroelastosis; M32.9 Systemic lupus erythematosus, unspecified; Z86.711 Personal history of pulmonary embolism; Z95.0 Presence of cardiac pacemaker; Z20.822 Contact with and (suspected) exposure to COVID-19
CPT/HCPCS: P9016; Q9967

== ENCOUNTER 2021-06-17 22:36 | Observation (INO) | payer MEDICARE, OTHER ==
[~2021-06-17 22:36] MED LIST changes: +CYCLOBENZAPR5 MG PO; +MEDDOSEPAK PO
[2021-06-17 23:35] LABS: HEMATOCRIT 39.1 % (37.0-47.0); HEMOGLOBIN 12.4 g/dl (12.0-16.0); IMMATURE GRANULOCYTES 0.3 % (0.0-5.0); MEAN CELL VOLUME 85.2 fL CALC (80.0-100.0); MEAN CORPUSCULAR HGB CONC 31.7 g/dL CAL (32.0-36.0); NEUT# 11.2 thou/uL (2.00-7.15); RED BLOOD COUNT 4.59 mill/uL (4.20-5.60); RED CELL DISTRI WIDTH 13.1 % (11.5-15.5)
[2021-06-17 23:41] LABS: URINE BILIRUBIN - DIPSTICK NEGATIVE (NEGATIVE); URINE BLOOD DIPSTICK TRACE-INTACT (NEGATIVE); URINE COLOR YELLOW; URINE GLUCOSE - DIPSTICK NEGATIVE (NEGATIVE); URINE KETONE NEGATIVE (NEGATIVE); URINE SPECIFIC GRAVITY 1.025
[2021-06-17 23:52] LABS: ALBUMIN 4.1 g/dL (3.2-5.0); ALKALINE PHOSPHATASE 85 u/l (38-126); AMYLASE 68 u/l (30-110); ANION GAP 12 (6-22 (CALC)); BUN 21 mg/dL (7-17); BUN/CREATININE RATIO 33 (12-20 (CALC)); CARBON DIOXIDE 21 mmol/l (22-30); CHLORIDE 105 mmol/l (95-108); CREATININE 0.6 mg/dL (0.5-1.0); GFR > 60 ML/MIN (>=60 (CALC)); GFR FOR AFR.AMER. > 60 ML/MIN (>=60 (CALC)); LIPASE 126 u/l (23-300); POTASSIUM 4.5 mmol/l (3.5-5.1); SGOT/AST 23 u/l (14-36); SODIUM 134 mmol/l (137-146); TOTAL PROTEIN 7.3 g/dL (6.3-8.2)
[2021-06-17 23:54] LABS: URINE LEUK ESTERASE SMALL (NEGATIVE); URINE NITRITE - DIPSTICK NEGATIVE (Negative)
[2021-06-17 23:56] LABS: URINE PROTEIN - DIPSTICK NEGATIVE (NEG-TRACE)
[2021-06-17 23:59] LABS: URINE BACTERIA MODERATE hpf; URINE EPITHELIAL CELLS MANY EPI/hpf (0-FEW)
[2021-06-18 00:11] LABS: BILIRUBIN, TOTAL 0.3 mg/dL (0.0-1.4)
[2021-06-18 07:35] VITALS: BP 99/61
[2021-06-18] MEDS ORDERED: MACROBID100 M1 PO (08:28)
[2021-06-18] MEDS ORDERED: AMOXICILLIN/PO500 MG PO (08:36)
== END 2021-06-18 12:21 | disposition home or self-care (01) ==
LOC: ED 22:36 → ED-I 06-18 05:50 → ED 06-18 06:10 → ICU 06-18 06:11
PROVIDERS: Emergency Medicine; ADMIT Hospitalist; ATTEND Hospitalist
DX: R10.33 Periumbilical pain (principal); N39.0 Urinary tract infection, site not specified; N83.202 Unspecified ovarian cyst, left side; N83.201 Unspecified ovarian cyst, right side; D72.829 Elevated white blood cell count, unspecified; I50.9 Heart failure, unspecified; Q24.9 Congenital malformation of heart, unspecified; F31.9 Bipolar disorder, unspecified; I45.9 Conduction disorder, unspecified; J02.0 Streptococcal pharyngitis; Z95.0 Presence of cardiac pacemaker; Z20.822 Contact with and (suspected) exposure to COVID-19
CPT/HCPCS: Q9967

== ENCOUNTER 2024-08-11 12:29 | Emergency (ER) | payer MEDICARE, MEDICAID ==
[~2024-08-11] VITALS: Ht 165.1 cm; Wt 40.8 kg
[2024-08-11] VITALS (14 sets, daily range): BP systolic 105–132; BP diastolic 69–86
[~2024-08-11 12:29] MED LIST changes: +AMOXICILLIN/PO500 MG PO; +MACROBID100 M1 PO
[2024-08-11 13:13] LABS: BASO% 0.5 % (0-3); EOS% 0.1 % (0-8); HEMATOCRIT 33.7 % (37.0-47.0); IMMATURE GRANULOCYTES 0.1 % (0.0-5.0); LYMPH% 9.4 % (15-41); MEAN CORPUSCULAR HGB CONC 27.9 g/dL CAL (32.0-36.0); MONO% 6.2 % (2-13); NEUT# 7.04 thou/uL (2.00-7.15); NEUT% 83.7 % (42-76); RED BLOOD COUNT 4.94 mill/uL (4.20-5.60); RED CELL DISTRI WIDTH 17.1 % (11.5-15.5)
[2024-08-11 13:17] LABS: HEMOGLOBIN 9.4 g/dl (12.0-16.0); MEAN CELL VOLUME 68.2 fL CALC (80.0-100.0)
[2024-08-11 13:24] LABS: ALBUMIN 4.6 g/dL (3.2-5.0); CREATININE 0.7 mg/dL (0.5-1.0); POTASSIUM 4.1 mmol/l (3.5-5.1); TOTAL PROTEIN 7.9 g/dL (6.3-8.2)
[2024-08-11 13:25] LABS: BILIRUBIN, TOTAL 0.6 mg/dL (0.02-1.3)
== END 2024-08-11 16:40 | disposition home or self-care (01) ==
LOC: ED 12:29
PROVIDERS: Family Medicine
DX: R55 Syncope and collapse (principal); Z95.0 Presence of cardiac pacemaker